=== PATIENT | female | born 1980 | race Asian ===

== ENCOUNTER 2017-02-06 22:22 | Emergency (ER) | payer OTHER ==
[2017-02-07] MEDS ORDERED: NS 0.9% 1000 ML* 1,000 ML IV ONE (00:21)
[2017-02-07] MEDS ORDERED: Ketorolac INJ* 30 MG/ML 1 ML VIAL IV ONE (00:21)
[2017-02-07] MEDS ORDERED: Morphine INJ* 4 MG/ML 1 ML CARPUJECT IV ONE (00:21)
[2017-02-07] MEDS ORDERED: diPHENhydraMINE IV* 50 MG/ML 1 ml VIAL (BENADRYL) IV ONE (00:22)
[2017-02-07 00:54] LABS: Hematocrit 39 % (35-47); Hemoglobin 13.4 g/dl (12.0-16.0); Mean Corpuscular HGB Conc 35 g/dl (31-36); Mean Corpuscular Hemoglobin 32 pg (27-31); Mean Corpuscular Volume 93 fL (80-97); Mean Platelet Volume 8 um3 (7.4-10.4); Red Blood Count 4.14 10^6/ul (4.0-5.4); Red Cell Distribution Width 13 % (10.5-15); White Blood Count 10.1 10^3/ul (3.5-10.8)
--- NOTE | 2017-02-07 01:05 | ED ---
Headache - HPI Summary HPI Summary: Patient presents to the ED with CC of left sided parietal and ocular LOCKHART with N/ V x 2 days which has been intermittent. She has recently had IVF and yesterday began her period again which brought on the LOCKHART. She denies taking anything for the pain or the nausea. She was seen at her OBGYN yesterday for pelvic pain associated with IVF and was given cipro. LOCKHART was present prior to the start of cipro. Denies C/D. Denies other health problems, allergies. Denies history of migraines. She denies aura or photophobia. Notes to abdominal pain after IVF for which she was examined by OB. 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 Hx Last Menstrual Period: 10/26/13 Onset/Duration: Sudden Onset Initially Headache Was: Initial Pain Scale(0-10)= - 8 Currently Pain Is: Current Pain Scale(0-10)= - 4 Timing: Intermittent, Lasting:, Minutes Character: Dull Location of Headache: Parietal - left Aggravating Factor: Nothing Allevating Factors: Nothing Associated Signs And Symptoms: Negative - Risk Factors SAH Risk Factors: Negative SDH Risk Factors: Negative Temporal Arteritis Risk Factors: Female - Allergies/Home Medications Allergies/Adverse Reactions: Allergies Allergy/AdvReac Type Severity Reaction Status Date / Time No Known Allergies Allergy Verified 06/09/15 15:25 PMH/Surg Hx/FS Hx/Imm Hx Previously Healthy: Yes Endocrine/Hematology History: Denies: Hx Diabetes Cardiovascular History: Denies: Hx Hypertension, Hx Pacemaker/ICD History: Denies: Hx Renal Disease Sensory History: Denies: Hx Hearing Aid Psychiatric History: Denies: Hx Panic Disorder - Surgical History Surgery Procedure, Year, and Place: HYSTOSCOPY - REMOVED SOME POLYPS ([facility]ERUS) - Immunization History Hx Pertussis Vaccination: No Immunizations Up to Date: Unable to Obtain/Confirm Infectious Disease History: No Infectious Disease History: Denies: Traveled Outside the [place] in Last 30 Days - Social History Occupation: Employed Full-time Lives: With Family Alcohol Use: None Hx Substance Use: No Substance Use Type: Reports: None Hx Tobacco Use: No Smoking Status (MU): Never Smoked Tobacco Have You Smoked in the Last Year: No Review of Systems Constitutional: Negative Negative: Fever, Chills, Fatigue Eyes: Negative Cardiovascular: Negative Positive: Abdominal Pain - left lower since IVF Positive: no symptoms reported, see HPI Musculoskeletal: Negative Skin: Negative Positive: Headache Psychological: Normal All Other Systems Reviewed And Are Negative: Yes Physical Exam Triage Information Reviewed: Yes Vital Signs On Initial Exam: Initial Vitals Temp Pulse Resp BP Pulse Ox 98.1 F 79 18 114/57 100 02/06/17 22:29 02/06/17 22:29 02/06/17 22:29 02/06/17 22:29 02/06/17 22:29 Vital Signs Reviewed: Yes Appearance: Positive: Well-Appearing, Pain Distress Skin: Positive: Warm, Skin Color Reflects Adequate Perfusion Head/Face: Positive: Normal Head/Face Inspection Eyes: Positive: EOMI, ESTRELLA, Conjunctiva Clear Neck: Positive: Supple, Nontender, No Lymphadenopathy Respiratory/Lung Sounds: Positive: Clear to Auscultation, Breath Sounds Present Cardiovascular: Positive: Normal, RRR, Pulses are Symmetrical in both Upper and Lower Extremities Musculoskeletal: Positive: Normal, Strength/ROM Intact Neurological: Positive: Speech Normal Psychiatric: Positive: Affect/Mood Appropriate - [place] Coma Scale Coma Scale Total: 15 Diagnostics - Vital Signs Vital Signs Temp Pulse Resp BP Pulse Ox 02/06/17 22:29 98.1 F 79 18 114/57 100 - Laboratory Result Diagrams: 02/07/17 00:35 02/07/17 00:35 Lab Statement: Any lab studies that have been ordered have been reviewed, and results considered in the medical decision making process. Headache Course/Dx - Course Course Of Treatment: Patient evaluated for LOCKHART. She has not taken any medication at home. Recently received IVF and LOCKHART began at that time. Intermittent. She is given Toradol and 1 L fluids with improvement. She notes the LOCKHART is a 1/10 now. Denies nausea currently. She is given rx for toradol and zofran as needed for LOCKHART. She will follow up with her PCP for further management. - Diagnoses Differential Diagnosis/HQI/PQRI: Migraine, Tension Headache, Viral Syndrome Provider Diagnoses: Headache Discharge - Discharge Plan Condition: Stable Disposition: HOME Prescriptions: Ketorolac TAB * [Toradol TAB *] 10 mg PO Q6H #16 tab Ondansetron ODT TAB* [Zofran 4 MG Odt TAB*] 4 mg PO Q6H PRN #12 tab.odt MDD 4 PRN Reason: Nausea Patient Education Materials: Acute Headache (ED) Referrals: Eloisa Puente MD [Primary Care Provider] - Additional Instructions: Please follow up with PCP Call their office tomorrow Take medications as prescribed to you Drink plenty of water Zofran should be dissolved under the tongue Take 1 tab up to every 6 hours Toradol 10mg can be taken up to 4 times daily for a maximum of 4 days in a row Take only if symptoms persist If anything becomes worse, return to the ED
[2017-02-07 01:22] LABS: Albumin 4.8 g/dL (3.2-5.2); BUN/Creatinine Ratio 21.7 (8-20); Calcium 9.5 mg/dL (8.6-10.3); EGFR African American 123.8 (>60); EGFR Non-African American 96.3 (>60); Globulin 2.6 g/dL (2-4); Potassium 3.5 mmol/L (3.5-5.0); Total Bilirubin 0.6 mg/dL (0.2-1.0); Total Protein 7.4 g/dL (6.4-8.9)
[2017-02-07] MEDS ORDERED: Ketorolac TAB * 10 MG TAB PO PRN (01:52)
[2017-02-07] MEDS ORDERED: Ondansetron ODT TAB* 4 MG SL ONE (01:53)
[2017-02-07 02:02] LABS: Erythrocyte Sed Rate 17 mm/Hr (0-14)
[2017-02-07 03:37] VITALS: BP 100/60
== END 2017-02-07 02:15 | disposition home or self-care (01) ==
LOC: ED 22:22
DX: R51 Headache (principal); R11.2 Nausea with vomiting, unspecified; R10.32 Left lower quadrant pain
CPT/HCPCS: 36415; 80053; 83605; 85025; 85652; 96374; 96375; 99282; A9270-GY; J1885